=== PATIENT | female | born 2000 | race African-American/Black ===

== ENCOUNTER 2019-07-05 15:38 | Emergency (ER) | payer MEDICAID ==
[~2019-07-05] VITALS: Ht 157.5 cm; Wt 46.0 kg
[2019-07-05 18:14] VITALS: BP 119/47
== END 2019-07-05 18:25 | disposition home or self-care (01) ==
LOC: ER 16:03
DX: L01.00 Impetigo, unspecified (principal); L25.9 Unspecified contact dermatitis, unspecified cause; F12.10 Cannabis abuse, uncomplicated; Z87.19 Personal history of other diseases of the digestive system
CPT/HCPCS: 99281